=== PATIENT | male | born 1960 | race Caucasian/White ===

== ENCOUNTER 2021-05-17 22:19 | Emergency (ER) | payer MEDICAID, SELFPAY ==
[2021-05-17 22:21] VITALS: BP 153/113; PULSE 82; RESP 18; TEMP 36.5; O2SAT 97; BMI 25.7
[2021-05-17 22:35] VITALS: PULSE 85; PULSE 89
[2021-05-17 22:45] VITALS: BP 153/113; PULSE 82; RESP 16; TEMP 36.5; O2SAT 97
--- NOTE | 2021-05-17 22:46 | PC.NURSE ---
PT ELECTED TO LEAVE AFTER RECEIVING BREATHING TREATMENT.
== END 2021-05-17 22:51 | disposition left against medical advice (07) ==
PROVIDERS: Emergency Provider Emergency Medicine; PCP Family Medicine
DX: Z53.21 Procedure and treatment not carried out due to patient leaving prior to being seen by health care provider (principal)
CPT/HCPCS: 99211

== ENCOUNTER 2021-08-18 10:22 | Emergency (ER) | payer MEDICARE, MEDICAID, SELFPAY ==
[2021-08-18] VITALS (14 sets, daily range): BP systolic 123–139; BP diastolic 84–105; PULSE 63–83; RESP 12–26; TEMP 36.8–36.9; O2SAT 93–98; BMI 24.3
--- NOTE | 2021-08-18 10:24 | ECG_ITS ---
APPROVED REPORT Exam: Resting ECG HR:72 bpm ECG Measurements Heart Rate 72 AXES QRSd 164 QRS 245 QT 436 T 63 QTc 460 Conclusion ELECTRONIC VENTRICULAR PACEMAKER ABNORMAL RHYTHM ECG UNCONFIRMED REPORT Electronically signed by : Gabino Castillo MD 08/19/2021 20:17:36
[2021-08-18 10:27] LABS: ABG Base Excess -1.1 mmol/L (-2.4-2.3); ABG HCO3 23.3 mmhg (22.0-26.0); ABG Oxygen Saturation 94 % (90-100); ABG PCO2 36.1 mmhg (35.0-45.0); ABG PH 7.43 mmol/L (7.35-7.45); ABG PO2 67.5 mmhg (80-100); ABG TCO2 24.4 mmhg (23-27)
[2021-08-18 10:28] LABS: Allen's Test Acceptable; Oxygen 3L %; Source Left Radial
--- NOTE | 2021-08-18 10:35 | XR_ITS ---
PROCEDURE INFORMATION: Exam: XR Chest Exam date and time: 08/18/2021 10:45 AM Age: 61 years old Clinical indication: Shortness of breath; Additional info: SOA, cough TECHNIQUE: Imaging protocol: XR of the chest. Views: 1 view. COMPARISON: No relevant prior studies available. FINDINGS: Tubes, catheters and devices: AICD. Lungs: Emphysematous change, interstitial prominence, and trace basilar airspace disease. Pleural spaces: No significant pleural effusion. Heart/Mediastinum: Valve replacement. No cardiomegaly. Vasculature: Ectasia of the thoracic aorta. Bones/joints: Degenerative change. IMPRESSION: Emphysematous change, interstitial prominence, and trace basilar airspace disease.
--- NOTE | 2021-08-18 10:53 | HMH.EDGENADL ---
ED Disposition Clinical Impression: Acute exacerbation of chronic obstructive airways disease Congestive heart failure Qualifiers: Heart failure type: unspecified Heart failure chronicity: chronic Qualified Code(s): I50.9 - Heart failure, unspecified Disposition: Home, Self-Care Condition on Discharge: Good Additional Instructions: Take antibiotics as directed as well as the prednisone course. Continue all your home medication as previously directed. You do need to contact your primary care physician to arrange follow-up within the next week. Return to ED with new or concerning symptoms. Prescriptions: Amoxicillin/Potassium Clav [Augmentin 500mg tab] 875 mg PO BID 7 Days #14 tab Transmission Status: Received by [id number] Azithromycin 250 mg PO DAILY 5 Days #6 tab Transmission Status: Received by [id number] predniSONE [Deltasone 20mg tablet] 40 mg PO DAILY 5 Days #10 tab Transmission Status: Received by [id number] Referrals: Provider,Referral, [Referring] - - Critical Care Critical Care Time: No Attestation: On 08/18/21, the high probability of a clinically significant, sudden or life threatening deterioration of the following system(s) required my full and direct attention, intervention and personal management. The time I documented below is in addition to time spent performing reported procedures but includes the following listed in this critical care notation. Medical Decision Making - Medical Records Medical records reviewed: Yes: I reviewed the patient's medical records. - Nito Inquiry Pt receiving controlled substance: No Vital Signs: 08/18/21 10:22 08/18/21 10:27 08/18/21 10:31 Temperature 98.5 F Temperature Source Oral Pulse Rate 63 72 Pulse Rate [Left Radial] 80 Respiratory Rate 26 H 20 12 Blood Pressure 136/98 H 133/92 H Blood Pressure [Right Arm] 137/105 H Blood Pressure Mean 108 101 Blood Pressure Mean [Right Arm] 115 Blood Pressure Source [Right Arm] Automatic Cuff Blood Pressure Position [Right Arm] Sitting 02 Sat by Pulse Oximetry 93 L 95 96 Oxygen Delivery Method Nasal Cannula Nasal Cannula Nasal Cannula Oxygen Flow Rate (LPM) 3 3 3 08/18/21 11:00 08/18/21 11:30 08/18/21 11:47 Temperature Temperature Source Pulse Rate 73 78 70 Pulse Rate [Left Radial] Respiratory Rate 23 13 Blood Pressure 128/92 H 139/97 H Blood Pressure [Right Arm] Blood Pressure Mean 104 107 Blood Pressure Mean [Right Arm] Blood Pressure Source [Right Arm] Blood Pressure Position [Right Arm] 02 Sat by Pulse Oximetry 98 96 Oxygen Delivery Method Nasal Cannula Nasal Cannula Oxygen Flow Rate (LPM) 3 3 08/18/21 12:00 08/18/21 12:30 08/18/21 13:00 Temperature Temperature Source Pulse Rate 72 70 70 Pulse Rate [Left Radial] Respiratory Rate 21 19 19 Blood Pressure 123/86 137/93 H 139/90 Blood Pressure [Right Arm] Blood Pressure Mean 98 104 107 Blood Pressure Mean [Right Arm] Blood Pressure Source [Right Arm] Blood Pressure Position [Right Arm] 02 Sat by Pulse Oximetry 97 96 93 L Oxygen Delivery Method Nasal Cannula Mechanical Ventilation Nasal Cannula Oxygen Flow Rate (LPM) 3 3 3 08/18/21 13:30 08/18/21 14:00 Temperature Temperature Source Pulse Rate 70 83 Pulse Rate [Left Radial] Respiratory Rate 18 24 Blood Pressure 132/93 H 127/88 Blood Pressure [Right Arm] Blood Pressure Mean 104 104 Blood Pressure Mean [Right Arm] Blood Pressure Source [Right Arm] Blood Pressure Position [Right Arm] 02 Sat by Pulse Oximetry 94 L 93 L Oxygen Delivery Method Nasal Cannula Nasal Cannula Oxygen Flow Rate (LPM) 3 3 - Lab Data Lab Results 08/18/21 10:22: WBC 10.5, RBC 5.64, Hgb 17.4, Hct 53.2 H, MCV 94.5 H, MCH 30.9, MCHC 32.7, RDW 15.0, Plt Count 242, MPV 9.2, Neut % (Auto) 66.0, Lymph % (Auto) 25.7, [place] % (Auto) 5.7, Eos % (Auto) 1.3, Baso % (Auto) 1.3, Neut # (Auto) 7.0, Lymph #
--- NOTE | 2021-08-18 10:54 | PC.NURSE ---
PT had CXR
[2021-08-18 10:58] LABS: Basophils # 0.1 K/mm3 (0-0.2); Basophils % 1.3 % (0.1-2.0); Eosinophils # 0.1 K/mm3 (0.0-0.4); Eosinophils % 1.3 % (0.1-12.0); Hematocrit 53.2 % (42.0-52.0); Hemoglobin 17.4 g/dL (14.1-18.0); Lymphocytes # 2.7 K/mm3 (0.7-4.5); Lymphocytes % 25.7 % (10-50); Mean Corpuscular HGB Conc 32.7 g/dL (31.8-35.4); Mean Corpuscular Hemoglobin 30.9 pg (27.0-31.2); Mean Corpuscular Volume 94.5 fl (80-94); Mean Platelet Volume 9.2 fl (7.4-10.4); Monocytes # 0.6 K/mm3 (0.1-1.0); Monocytes % 5.7 % (1.7-9.3); Platelet Count 242 K/mm3 (142-424); Red Blood Count 5.64 M/mm3 (4.60-6.20); White Blood Count 10.5 K/mm3 (4.8-10.8)
[2021-08-18 10:59] LABS: Chloride 104 mmol/L (98-107); Potassium 3.9 mmoL/L (3.5-5.1); Sodium 138 mmol/L (136-145)
[2021-08-18 11:01] LABS: Alanine Aminotransferase 21 U/L (12-78); Alkaline Phosphatase 65 U/L (38-126); Aspartate Amino Transferase 25 U/L (17-59); Bilirubin,Total 1.7 mg/dl (0.2-1.3); Blood Urea Nitrogen 36 mg/dl (9-20); Creatinine Clearance Estimated 53 mL/min (50-200); Estimated Glomerular Filt Rate 47 ml/min (>60); GFR (African American) 57 ML/MIN (>60)
[2021-08-18 11:02] LABS: Albumin Level 3.6 g/dl (3.5-5.0); Albumin/Globulin Ratio 1.6 (1.1-1.8); Anion Gap 9.9 mEq/L (5-15); Calcium 8.6 mg/dl (8.4-10.2); Carbon Dioxide 28 mmol/L (22.0-30.0); Globulin 2.3 g/dL (1.3-3.2); Glucose 83 mg/dl (74-100); Total Protein,Serum 5.9 g/dl (6.3-8.2)
--- NOTE | 2021-08-18 11:02 | PC.NURSE ---
Rn in room to give med
[2021-08-18 11:03] LABS: INR 1.05 (0.9-1.1); Prothrombin Time 11.8 seconds (10.1-12.5)
[2021-08-18 11:12] LABS: NT Pro Brain Natriuretic Pep. 1190 pg/mL (0-125)
[2021-08-18 11:19] LABS: Troponin I < 0.01 ng/ml (0.00-0.034)
--- NOTE | 2021-08-18 13:14 | PC.NURSE ---
Pt laying in bed asleep
--- NOTE | 2021-08-18 13:30 | ECG_ITS ---
APPROVED REPORT Exam: Resting ECG HR:72 bpm ECG Measurements Heart Rate 72 AXES QRSd 154 QRS 251 QT 436 T 73 QTc 461 Conclusion ELECTRONIC VENTRICULAR PACEMAKER ABNORMAL RHYTHM ECG UNCONFIRMED REPORT Electronically signed by : Gabino Castillo MD 08/19/2021 20:16:51
--- NOTE | 2021-08-18 13:58 | PC.NURSE ---
tech perfomred EKG on pt
--- NOTE | 2021-08-18 14:23 | PC.NURSE ---
pt in room sleeping
[2021-08-18 14:47] LABS: Troponin I < 0.01 ng/ml (0.00-0.034)
--- NOTE | 2021-08-18 15:10 | PC.NURSE ---
Notified RT of neb treatment needed
--- NOTE | 2021-08-18 15:10 | PC.NURSE ---
Pt requested another neb treatment before D/C. agreed.
--- NOTE | 2021-08-18 15:36 | PC.NURSE ---
Pt sitting uo at bedside
== END 2021-08-18 16:00 | disposition home or self-care (01) ==
PROVIDERS: Emergency Provider Emergency Medicine; PCP Family Medicine
DX: J44.1 Chronic obstructive pulmonary disease with (acute) exacerbation (principal); I50.9 Heart failure, unspecified; I48.0 Paroxysmal atrial fibrillation; Z79.899 Other long term (current) drug therapy; Z88.2 Allergy status to sulfonamides
CPT/HCPCS: 71045; 80053; 82803; 83880; 84484; 85025; 85610; 93005; 96374; 99284

== ENCOUNTER 2023-02-18 07:20 | Emergency (ER) | payer MEDICARE, SELFPAY ==
[2023-02-18] VITALS (8 sets, daily range): BP systolic 144–172; BP diastolic 97–111; PULSE 80–88; RESP 18–20; TEMP 36.8; O2SAT 97–100; BMI 22.7
--- NOTE | 2023-02-18 07:26 | HMH.EDGENADL ---
Discharge Plan Disposition Patient Disposition: Home, Self-Care Prescriptions Prescriptions: No Action prednisone 20 MG tablet 40 mg PO DAILY 5 Days Qty: 10 0RF azithromycin 250 MG tablet 250 mg PO DAILY 5 Days Qty: 6 0RF Rx Instructions: Take 500 mg on day 1 amoxicillin-pot clavulanate 1 EACH tablet 875 mg PO BID 7 Days Qty: 14 0RF Referrals Follow up/Referrals: Jimy Bojorquez MD [Staff Physician] - See instructions Activity Restrictions/Add. Instructions Additional Instructions/Restrictions: This sensation of having a foreign body or lump in throat has a very broad differential diagnosis without clinical evidence of a complete obstruction no emergent intervention is indicated however you certainly need close follow-up with a health services information specialist or general surgeon to have an endoscopy and to have this condition investigated further. Please follow-up with Dr. Bojorquez at your earliest convenience. Return with inability to swallow. Clinical Impressions Clinical Impression: Globus sensation Instructions Patient Instructions: DI for Skin Abscess Discharge ED Provider: Polina Gomes General Adult HPI General Chief complaint: Skin/Abscess/Foreign Body Stated complaint: choking Time Seen by Provider: 02/18/23 07:23 History of Present Illness HPI narrative: Patient is a 62-year-old male presents today with sensation of foreign bodies in his upper esophagus. States that yesterday evening when he was taking his pills that he felt like 1 or some of them became stuck in his upper esophagus. Since that time he has been able to eat crackers and drink fluids without any difficulty. He is tolerating secretions. No history of any type of esophageal pathology or neck pathology that he is aware of. Has not had an endoscopy in the past. States he was not eating any foods specifically any meats. Related Data Previous Rx's Medication Instructions Recorded amoxicillin 500 mg-potassium 875 mg PO BID 7 days #14 tabs 08/18/21 clavulanate 125 mg tablet azithromycin 250 mg tablet 250 mg PO DAILY 5 days #6 tabs 08/18/21 prednisone 20 mg tablet 40 mg PO DAILY 5 days #10 tabs 08/18/21 Allergies Allergy/AdvReac Type Severity Reaction Status Date / Time From BYSTOLIC Allergy Unknown DECREASED Uncoded 05/20/17 14:31 HEART RATE From DIOVAN Allergy Unknown I-RASH Uncoded 05/20/17 14:31 From SULAR Allergy Unknown I-RASH Uncoded 05/20/17 14:31 LISINOPRIL Allergy Unknown SYNCOPE Uncoded 05/20/17 14:31 Meperidine Allergy Unknown I-RASH Uncoded 05/20/17 14:31 METOPROLOL Allergy Unknown KNOTS ON Uncoded 05/20/17 14:31 LEGS Morphine Allergy Unknown NA-NAUSEA Uncoded 05/20/17 14:31 MULTIPLE BLOOD PRESSURE MEDS Allergy Unknown DOESN'T Uncoded 05/20/17 14:31 33 -DOESN'T KNOW NAMES KNOW SULFA (sulfonamide) Allergy Unknown I-RASH Uncoded 05/20/17 14:31 [facility] Disclaimer: The information contained in this section may have been updated after the patient was seen, as this information can be updated by other users. Social History Smoking Status: Former smoker alcohol intake: never current occupational status: other Travel in the last 8 weeks: None ROS Obtained: Yes All systems reviewed & no additional complaints except as documented Physical Exam General General appearance: in no apparent distress ENT ENT exam: Present normal exam, normal oropharynx and other (Tolerating secretions without difficulty) Neck Neck exam: Present normal inspection, full ROM and other (No masses, no stridor); Absent tenderness or lymphadenopathy Respiratory Respiratory exam: Present normal lung sounds bilaterally; Absent respiratory distress, wheezes or stridor Cardiovascular Cardiovascular exam: Present regular rate; Absent tachycardia Neurological Exam Neurological exam: Present alert and oriented X3 Medical Decision Making Nito Inquiry Pt receiving controlled substance: No Vital Signs: 09
--- NOTE | 2023-02-18 08:30 | PC.NURSE ---
called general surgery office and made appointment for pt for follow up/scope consult. 02/20/23 @ [id number]
--- NOTE | 2023-02-18 09:04 | PC.NURSE ---
called pt's mother to pick pt up for discharge. states she will be on her way shortly.
== END 2023-02-18 10:43 | disposition home or self-care (01) ==
PROVIDERS: Emergency Provider Student in an Organized Health Care Education/Training Program; PCP Family Medicine
DX: F45.8 Other somatoform disorders (principal); Z87.891 Personal history of nicotine dependence
CPT/HCPCS: 99283

== ENCOUNTER → 2023-03-17 08:46 | Outpatient (CLI) | payer MEDICARE, SELFPAY ==
--- NOTE | 2023-03-17 08:47 | FL_ITS ---
FINAL REPORT CLINICAL HISTORY: FB sensation 2.32 fluoro time DAP 1490.23 FINDINGS: UPPER GI EXAM HISTORY: . Dysphasia PROCEDURE: The patient ingested barium. Effervescent crystals were also administered.17 radiographs were obtained. FINDINGS: The esophagus is normal. There is a small sliding-typehiatal hernia. There is no gastroesophageal reflux. Peristalsis is normal. The rugal fold pattern of the stomach is normal. The duodenal bulb is normal. The patient refused to swallow a 13 mm barium tablet. Fluoro time: 2 minutes 32 seconds DAP: 1490.23 uGy.m2 IMPRESSION: Small sliding-type hiatal hernia. Films reviewed , interpreted and dictated by Dr. Barrientos. Transcribed by Rodrick Batista PA-C. Reviewed, Interpreted and Dictated by oNlberto Barrientos MD Transcribed by WENDI Toth Authenticated and . [facility]
== END ==
PROVIDERS: PCP Family Medicine; Visit Provider Surgery
DX: R09.89 Other specified symptoms and signs involving the circulatory and respiratory systems (principal)
CPT/HCPCS: 74246